=== PATIENT | female | born 1985 | race Caucasian/White ===

== ENCOUNTER 2019-07-12 21:51 | Emergency (ER) | payer BC ==
[~2019-07-12] VITALS: Ht 165.1 cm; Wt 75.6 kg
[~2019-07-12 21:51] MED LIST: DOCU-131 BC; HYDR-3240 PO; IBUP-1222 PO; PNV91TAB3 PO
[2019-07-12] MEDS ORDERED: ACETAMINOPHEN 500 MG TABLET PO ONE (22:30)
[2019-07-12 22:39] LABS: MICROSCOPIC NOT IND
[2019-07-12 22:51] LABS: CULTURE INDICATED? NO
[2019-07-12] MEDS ORDERED: ACETAMINOPHEN 500 MG TABLET ONE (23:08)
[2019-07-12 23:10] VITALS: BP 114/75
[2019-07-12 23:15] LABS: BASOPHILS # (AUTO) 0.03 x10^3/uL (0-0.1); BASOPHILS % (AUTO) 0 % (0-1); EOSINOPHILS # (AUTO) 0.13 x10^3/uL (0-0.4); EOSINOPHILS % (AUTO) 1 % (1-7); LYMPHOCYTES # (AUTO) 2.69 x10^3/uL (1-3.4); LYMPHOCYTES % (AUTO) 24 % (22-44); MD NO; MEAN CORPUSCULAR HEMOGLOBIN 30.4 pg (27.0-34.8); MEAN CORPUSCULAR VOLUME 89.5 fL (80-100); MEAN PLATELET VOLUME 8.2 fL (7.4-10.4); MONOCYTES # (AUTO) 0.91 x10^3/uL (0.2-0.8); MONOCYTES % (AUTO) 8 % (2-9); NEUTROPHILS # (AUTO) 7.25 x10^3/uL (1.8-6.8); NEUTROPHILS % (AUTO) 66 % (42-75); PLATELET COUNT 246 x10^3/uL (130-400); RED BLOOD COUNT 4.98 x10^6/uL (3.82-5.3); RED CELL DISTRIBUTION WIDTH 13.1 % (9.6-15.2)
[2019-07-12 23:22] LABS: ALBUMIN 3.7 g/dL (3.4-5.0); ANION GAP 8 mmol/L (5-15); CHLORIDE 107 mmol/L (98-107); CREATININE 1.24 mg/dL (0.55-1.02)
== END 2019-07-13 00:10 | disposition home or self-care (01) ==
LOC: ED 22:58
DX: R10.2 Pelvic and perineal pain (principal); Z72.89 Other problems related to lifestyle
CPT/HCPCS: 36415; 76801; 80048; 81003; 82040; 84702; 85025; 99284

== ENCOUNTER 2019-07-15 10:54 | Emergency (ER) | payer BC, OTHER ==
[~2019-07-15] VITALS: Ht 165.1 cm; Wt 74.1 kg
[2019-07-15 11:09] VITALS: BP 103/75
--- NOTE | 2019-07-15 11:35 | NUR ---
PATIENT BROUGHT BACK FROM TRIAGE FOR RECHECK- LABS AND ULTRA SOUNDS FOR POSSIBLE ECTOPIC . PATIENT WAS HERE WEDNESDAY NOC. PATIENT STATES STILL HAVING INTERMITTENT BLEEDING BUT IT HAS IMPROVED. DENIES PAIN OR CRAMPING.
--- NOTE | 2019-07-15 11:52 | NUR ---
PT TO ULTRASOUND
[2019-07-15 12:12] LABS: BASOPHILS # (AUTO) 0.02 x10^3/uL (0-0.1); BASOPHILS % (AUTO) 0 % (0-1); EOSINOPHILS # (AUTO) 0.08 x10^3/uL (0-0.4); EOSINOPHILS % (AUTO) 1 % (1-7); LYMPHOCYTES # (AUTO) 1.36 x10^3/uL (1-3.4); LYMPHOCYTES % (AUTO) 19 % (22-44); MD NO; MEAN CORPUSCULAR HEMOGLOBIN 30.3 pg (27.0-34.8); MEAN CORPUSCULAR HGB CONC 33.2 g/dL (32.4-35.8); MEAN CORPUSCULAR VOLUME 91.1 fL (80-100); MEAN PLATELET VOLUME 8.1 fL (7.4-10.4); MONOCYTES # (AUTO) 0.49 x10^3/uL (0.2-0.8); MONOCYTES % (AUTO) 7 % (2-9); NEUTROPHILS % (AUTO) 73 % (42-75); PLATELET COUNT 225 x10^3/uL (130-400); RED BLOOD COUNT 4.93 x10^6/uL (3.82-5.3); RED CELL DISTRIBUTION WIDTH 13.1 % (9.6-15.2)
[2019-07-15 12:17] LABS: ALBUMIN 3.8 g/dL (3.4-5.0); ANION GAP 6 mmol/L (5-15); CALCIUM 8.8 mg/dL (8.5-10.1); CHLORIDE 109 mmol/L (98-107); CREATININE 1.08 mg/dL (0.55-1.02)
--- NOTE | 2019-07-15 13:01 | NUR ---
DIEUDONNE KAUR AT BEDSIDE TO DISCUSS POC
== END 2019-07-15 13:33 | disposition home or self-care (01) ==
LOC: ED 12:42
DX: O20.0 Threatened abortion (principal); Z3A.00 Weeks of gestation of pregnancy not specified
CPT/HCPCS: 36415; 76801; 80048; 82040; 84702; 85025; 99284